=== PATIENT | female | born 1995 | race Caucasian/White ===

== ENCOUNTER 2016-09-18 04:46 | Emergency (ER) | payer OTHER ==
[2016-09-18 04:51] VITALS: BP 112/62; PULSE 83; RESP 21; TEMP 97.9; O2SAT 99
--- NOTE | 2016-09-18 04:54 | PD ---
HPI Chief Complaint: intoxication Time Seen by Provider: 04:51 Travel History International Travel<30 days: No Contact w/Intl Traveler<30days: No Traveled to known affect area: No History of Present Illness HPI Young female was brought in by EMS after patient was found intoxicated. Patient was partying and drinking alcohol with friends and then passed out completely. EMS was called. Patient was brought to the ED for evaluation. Patient's unable to provide any information. [facility] Social History Tobacco Use: No Allergies-Medications (Allergen,Severity, Reaction): Coded Allergies: UNOBTAINABLE (Unverified , 09/18/16) Reported Meds & Prescriptions Reported Meds & Active Scripts Active Active Prescriptions or Reported Medications Unobtainable Review of Systems ROS Limitations: Intoxication, Altered Mental Status Physical Exam Narrative GENERAL: Well-nourished, well-developed patient. SKIN: Focused skin assessment warm/dry. HEAD: Normocephalic. EYES: No scleral icterus. No injection or drainage. Pupils 3 mm equal reactive. NECK: Supple, trachea midline. No JVD or lymphadenopathy. CARDIOVASCULAR: Regular rate and rhythm without murmurs, gallops, or rubs. RESPIRATORY: Breath sounds equal bilaterally. No accessory muscle use. GASTROINTESTINAL: Abdomen soft, non-tender, nondistended. MUSCULOSKELETAL: No cyanosis, or edema. BACK: Nontender without obvious deformity. No CVA tenderness. Neurologic exam: Patient responded to painful stimuli. Patient moves all extremity. No obvious focal neurological deficit. Data Data Last Documented VS Vital Signs Date Time Temp Pulse Resp B/P Pulse Ox O2 Delivery O2 Flow Rate FiO2 09/18/16 07:24 94 20 110/59 100 Room Air 09/18/16 04:51 97.9 MDM Medical Decision Making Medical Screen Exam Complete: Yes Emergency Medical Condition: Yes Differential Diagnosis Differential diagnosis including intoxication, electrolyte imbalance, dehydration. Narrative Course Young female was brought in by EMS after patient was found intoxicated. Patient will be observed in the ED until patient's awake and alert oriented 3 and steady on her feet to be safely discharged. Diagnosis Primary Impression: Alcohol intoxication Qualified Code: F10.920 - Alcohol intoxication, uncomplicated Scripts Unable to Obtain Active Prescriptions or Reported Meds Jagjit Zepeda MD September 18, 2016 04:54
[2016-09-18 07:24] VITALS: BP 110/59; PULSE 94; RESP 20; O2SAT 100
== END 2016-09-18 10:10 | disposition home or self-care (01) ==
LOC: EDBD 04:46 → NEPC 04:46
DX: F10.920 Alcohol use, unspecified with intoxication, uncomplicated (principal)
CPT/HCPCS: 99283